=== PATIENT | female | born 1965 | race Caucasian/White ===

== ENCOUNTER 2022-10-07 06:50 | Observation (INO) | payer OTHER ==
[2022-10-07] MEDS ORDERED: SODIUM CHLORIDE 1,000 ML IV STA (07:45)
[2022-10-07 08:42] LABS: EOS % 3.8 % (0-4.5); HEMATOCRIT 40.4 % (32.4-45.2); HEMOGLOBIN 13.5 GM/dL (10.7-15.3); LYMPH % 36.6 % (8-40); MCHC 33.3 g/dl (32.0-36.0); MEAN CELL VOLUME 86.9 fl (80-96); MEAN PLT VOLUME 7.1 fl (7.5-11.1); MONO % 8.8 % (3.8-10.2); NEUT % 49.8 % (42.8-82.8); PLATELET COUNT 496 10^3/uL (134-434); RBC 4.65 M/mm3 (3.60-5.2); RDW 12.6 % (11.6-15.6); URINE APPEARANCE CLEAR; URINE BILIRUBIN NEGATIVE (NEGATIVE); URINE COLOR YELLOW; URINE GLUCOSE (UA) NEGATIVE (NEGATIVE); URINE KETONE NEGATIVE (NEGATIVE); URINE LEUK ESTERASE NEGATIVE (NEGATIVE); URINE NITRITE NEGATIVE (NEGATIVE); URINE PROTEIN NEGATIVE (NEGATIVE); URINE UROBILINOGEN 0.2 mg/dL (0.2-1.0); WHITE BLOOD COUNT 4.5 K/mm3 (4.0-10.0)
[2022-10-07 08:59] LABS: CHLORIDE 108 mmol/L (98-107); SODIUM 143 mmol/L (136-145)
[2022-10-07 09:03] LABS: CALCIUM 9.4 mg/dL (8.5-10.1); GLUCOSE,RANDOM 100 mg/dL (74-106)
[2022-10-07 09:04] LABS: ANION GAP 6 MMOL/L (8-16); BLOOD UREA NITROGEN 14.3 mg/dL (7-18); CO2 29 mmol/L (21-32); MAGNESIUM 2.2 mg/dL (1.8-2.4)
[2022-10-07 09:07] LABS: CREATININE 0.8 mg/dL (0.55-1.3); SGOT/AST 28 U/L (15-37); SGPT/ALT 43 U/L (13-61)
[2022-10-07 09:08] LABS: BILIRUBIN,TOTAL 0.5 mg/dL (0.2-1); TOT PROT 6.9 g/dl (6.4-8.2)
[2022-10-07 09:09] LABS: ALK PHOS 75 U/L (45-117)
[2022-10-07] MEDS ORDERED: ASPIRIN 81 MG CHEWABLE TABLETS PO ONE (10:42)
[2022-10-07] MEDS ORDERED: ASPIRIN 81 MG CHEWABLE TABLETS ONE (10:47)
[2022-10-07 19:55] LABS: INR 1.03 (0.83-1.09); PROTHROMBIN TIME (PATIENT) 11.8 SEC (9.7-13.0)
[2022-10-07 19:58] LABS: ACTIVATED PTT 27.2 SECONDS (25.2-36.5)
[2022-10-07 20:07] LABS: CHOLESTEROL 186 mg/dL (50-200)
[2022-10-07 20:08] LABS: LDL CHOLESTEROL (ONLY SJRH) 123 mg/dL (5-100); TRIGLYCERIDES 141 mg/dL (0-150)
[2022-10-07 20:10] LABS: HDL CHOLESTEROL 58 mg/dL (40-60)
[2022-10-07] MEDS ORDERED: ATORVASTATIN CA 20 MG TABLET (FP) ONE (21:50)
[2022-10-07] MEDS: ATORVASTATIN CA 20 MG TABLET (FP) PO SCH (21:52)
[2022-10-08 01:11] VITALS: BMI 26.4
[2022-10-08 07:15] LABS: HEMATOCRIT 41.5 % (32.4-45.2); HEMOGLOBIN 13.9 GM/dL (10.7-15.3); MCHC 33.5 g/dl (32.0-36.0); MEAN CELL VOLUME 86.6 fl (80-96); MEAN PLT VOLUME 7.3 fl (7.5-11.1); PLATELET COUNT 500 10^3/uL (134-434); RBC 4.79 M/mm3 (3.60-5.2); RDW 12.7 % (11.6-15.6); WHITE BLOOD COUNT 6.1 K/mm3 (4.0-10.0)
[2022-10-08 07:37] LABS: CALCIUM 9.4 mg/dL (8.5-10.1)
[2022-10-08 07:38] LABS: BLOOD UREA NITROGEN 19.1 mg/dL (7-18); MAGNESIUM 2.1 mg/dL (1.8-2.4)
[2022-10-08 07:41] LABS: CREATININE 0.7 mg/dL (0.55-1.3); PHOSPHOROUS 4.3 mg/dL (2.5-4.9)
[2022-10-08] MEDS ORDERED: ASPIRIN 81 MG CHEWABLE TABLETS PO SCH (10:00)
[2022-10-08] MEDS ORDERED: ENOXAPARIN NA (PORCINE) 40 MG/0.4 ML DISP.SYRIN SQ SCH (10:00)
[2022-10-08] MEDS ORDERED: IBUPROFEN 600 MG TABLET (FP) PO ONE (12:54)
[2022-10-08] MEDS: ATORVASTATIN CA 20 MG TABLET (FP) PO SCH (21:26)
[2022-10-09 05:31] VITALS: BP 126/70; PULSE 56; RESP 20; TEMP 97.6
[2022-10-09] MEDS ORDERED: IBUPROFEN 600 MG TABLET (FP) PO ONE (06:36)
== END 2022-10-09 09:19 | disposition short-term general hospital (02) ==
LOC: JER 06:50 → JERBED 10:59 → INTOOBSV 10:59 → UNDOADMOB 10:59 → JERBED 11:07 → J4W 10-08 00:27
PROVIDERS: ADMIT Internal Medicine; ATTEND Internal Medicine
PROC: 3E023GC Introduction of Other Therapeutic Substance into Muscle, Percutaneous Approach (ICD-10-PCS; principal; 2022-10-07)
DX: I20.8 Other forms of angina pectoris (principal); R77.8 Other specified abnormalities of plasma proteins; R07.89 Other chest pain; Z82.49 Family history of ischemic heart disease and other diseases of the circulatory system; Z29.8 Encounter for other specified prophylactic measures; Z78.0 Asymptomatic menopausal state
CPT/HCPCS: 36415; 71046-TC-FY; 78452-TC; 80048; 80053; 80061; 81003; 83036; 83735; 84100; 84443; 84484; 85025; 85027; 85610; 85730; 87086; 93005; 93010; 93017; 93306-TC; 99285-25; A9502; C9803-CS; G0378; J2785; U0003; U0005